=== PATIENT | female | born 2000 | race Caucasian/White ===

== ENCOUNTER 2020-01-08 06:00 | Outpatient (RCR) | payer MEDICAID, SELFPAY | END 2020-02-02 23:59 | disposition home or self-care (01) | LOC: GPT 06:00 | PROVIDERS: PCP Nurse Practitioner; Referring Provider Orthopaedic Surgery; Visit Provider Orthopaedic Surgery | DX: S73.191A Other sprain of right hip, initial encounter (principal); Z98.890 Other specified postprocedural states; X58.XXXA Exposure to other specified factors, initial encounter | CPT/HCPCS: 97110; 97112; 97116; 97140; 97162; 97530 ==

== ENCOUNTER 2020-02-03 06:00 | Outpatient (RCR) | payer MEDICAID, SELFPAY | END 2020-03-03 23:59 | disposition home or self-care (01) | LOC: GPT 06:00 | PROVIDERS: PCP Nurse Practitioner; Referring Provider Orthopaedic Surgery; Visit Provider Orthopaedic Surgery | DX: S83.511D Sprain of anterior cruciate ligament of right knee, subsequent encounter (principal); X58.XXXD Exposure to other specified factors, subsequent encounter; Z96.649 Presence of unspecified artificial hip joint | CPT/HCPCS: 97110; 97112; 97140; 97164; 97530 ==

== ENCOUNTER → 2020-05-13 08:00 | Outpatient (BNVA) | payer MEDICAID, SELFPAY | PROVIDERS: PCP Nurse Practitioner; Visit Provider Psychiatry & Neurology Psychiatry | DX: F43.12 Post-traumatic stress disorder, chronic (principal); F33.2 Major depressive disorder, recurrent severe without psychotic features; F17.200 Nicotine dependence, unspecified, uncomplicated | CPT/HCPCS: 99204 ==

== ENCOUNTER → 2020-06-10 07:37 | Outpatient (BNVA) | payer MEDICAID, SELFPAY | PROVIDERS: PCP Nurse Practitioner; Visit Provider Psychiatry & Neurology Psychiatry | DX: F60.3 Borderline personality disorder (principal); F17.200 Nicotine dependence, unspecified, uncomplicated; F33.2 Major depressive disorder, recurrent severe without psychotic features; F43.12 Post-traumatic stress disorder, chronic | CPT/HCPCS: 99214 ==

== ENCOUNTER 2020-11-25 15:44 | Outpatient (CLI) | payer MEDICAID, SELFPAY ==
--- NOTE | 2020-11-25 16:04 | MR_ITS ---
WS: [id number] MRI LUMBAR SPINE NONCONTRAST HISTORY: RADICULOPATHY, LUMBOSACRAL REGION COMPARISON: 10/31/2018 TECHNIQUE: Sagittal and axial multisequence imaging is submitted. Minimal RIGHT curvature lumbar spine. Posterior alignment is normal. No marrow edema or fractures. Mild disc space narrowing and desiccation at L5-S1. Similar to the prior study. The remaining discs a re normal. Conus terminates normally at L1-2 disc level. L1-L2: Normal. L2-L3: Normal. L3-L4: Minimal annular disc bulge. Very mild facet joint arthritis. No stenosis. L4-L5: Mild annular disc bulging with mild facet joint arthritis. Fluid in the facet joints. There is a fissure in the RIGHT foraminal disc. No stenosis or contact on the nerve root. L5-S1: Moderate annular disc bulging and mild osteophytic ridging. Moderate size central disc protrus ion with annular tear. Disc extends caudad to the disc level and is slightly extruded although still contacts the parent disc. This extruded disc contacts the S1 nerve roots, RIGHT greater than LEFT. Mi ld to moderate facet joint arthritis. Very mild encroachment of the disc into the foramen causing mil d foraminal narrowing. Visualized retroperitoneal structures are negative. MR/MR lumbar spine wo con* [id number] IMPRESSION: 1. Again noted is a moderate size central disc protrusion with mild caudad dis placement at L5-S1. Disc is contacting the traversing S1 nerve roots bilaterall y, RIGHT greater than LEFT. 2. Mild bilateral foraminal narrowing at L5-S1. 3. Mild to moderate facet joint arthritis at L4-5 and L5-S1.
== END 2020-11-25 15:45 | disposition home or self-care (01) ==
PROVIDERS: PCP Nurse Practitioner; Visit Provider Nurse Practitioner
DX: M54.17 Radiculopathy, lumbosacral region (principal); M47.816 Spondylosis without myelopathy or radiculopathy, lumbar region; M47.817 Spondylosis without myelopathy or radiculopathy, lumbosacral region; M51.27 Other intervertebral disc displacement, lumbosacral region
CPT/HCPCS: 72148

== ENCOUNTER → 2021-01-12 09:21 | Outpatient (BNVA) | payer MEDICAID, SELFPAY | PROVIDERS: PCP Nurse Practitioner; Visit Provider Anesthesiology Pain Medicine | DX: G89.29 Other chronic pain (principal); M47.816 Spondylosis without myelopathy or radiculopathy, lumbar region; M51.36 Other intervertebral disc degeneration, lumbar region; M51.16 Intervertebral disc disorders with radiculopathy, lumbar region; M79.604 Pain in right leg; M79.605 Pain in left leg; F17.210 Nicotine dependence, cigarettes, uncomplicated | CPT/HCPCS: 99204 ==

== ENCOUNTER → 2021-06-24 10:34 | Outpatient (BNVA) | payer MEDICAID, SELFPAY | PROVIDERS: PCP Nurse Practitioner; Visit Provider Anesthesiology Pain Medicine | DX: G89.29 Other chronic pain (principal); M47.816 Spondylosis without myelopathy or radiculopathy, lumbar region; M51.36 Other intervertebral disc degeneration, lumbar region; M51.16 Intervertebral disc disorders with radiculopathy, lumbar region; M79.604 Pain in right leg; M79.605 Pain in left leg; F17.210 Nicotine dependence, cigarettes, uncomplicated | CPT/HCPCS: 99214 ==

== ENCOUNTER → 2021-07-01 14:30 | Outpatient (BNVA) | payer MEDICAID, SELFPAY | PROVIDERS: PCP Nurse Practitioner; Visit Provider Anesthesiology Pain Medicine | DX: F17.210 Nicotine dependence, cigarettes, uncomplicated (principal); M47.816 Spondylosis without myelopathy or radiculopathy, lumbar region | CPT/HCPCS: 64493; 64494; 64495; J3490 ==

== ENCOUNTER → 2021-08-18 13:15 | Outpatient (BNVA) | payer MEDICAID, SELFPAY | PROVIDERS: PCP Nurse Practitioner; Visit Provider Anesthesiology Pain Medicine | DX: F17.210 Nicotine dependence, cigarettes, uncomplicated (principal); M47.816 Spondylosis without myelopathy or radiculopathy, lumbar region | CPT/HCPCS: 64493; 64494; 64495; J3490 ==

== ENCOUNTER → 2021-09-10 10:57 | Outpatient (BNVA) | payer MEDICAID, SELFPAY | PROVIDERS: PCP Nurse Practitioner; Visit Provider Anesthesiology Pain Medicine | DX: M51.16 Intervertebral disc disorders with radiculopathy, lumbar region (principal); M51.36 Other intervertebral disc degeneration, lumbar region; F17.210 Nicotine dependence, cigarettes, uncomplicated | CPT/HCPCS: 99213 ==

== ENCOUNTER → 2021-10-20 08:56 | Outpatient (BNVA) | payer MEDICAID, SELFPAY | PROVIDERS: PCP Nurse Practitioner; Visit Provider Orthopaedic Surgery | DX: M51.16 Intervertebral disc disorders with radiculopathy, lumbar region (principal); R20.2 Paresthesia of skin; R32 Unspecified urinary incontinence; M25.552 Pain in left hip; M25.551 Pain in right hip | CPT/HCPCS: 72110; 73522; 99204 ==

== ENCOUNTER 2021-11-02 07:23 | Outpatient (CLI) | payer MEDICAID, SELFPAY ==
--- NOTE | 2021-11-02 08:00 | MR_ITS ---
WS: [id number] MRI LUMBAR SPINE NONCONTRAST HISTORY: pain and numbness/weakness COMPARISON: 11/25/2020 TECHNIQUE: Sagittal and axial multisequence imaging is submitted. Minimal retrolisthesis of L5 is similar to the prior study. The remaining disc spaces and vertebral b stuart heights are normal. No fracture or marrow edema. Disc spaces and vertebral body heights are well-preserved. Conus terminates normally at L1-2 disc level. L1-L2: Normal. L2-L3: Normal. L3-L4: Very minimal disc bulging. No stenosis. L4-L5: Mild annular disc bulge with a very shallow LEFT paracentral disc protrusion. LEFT paracentral disc protrusion is new but does not contact the nerve root. No high-grade stenosis. Small bilateral annular fissures in tiny disc protrusions in the foramina. Similar to the prior studies. L5-S1: Mild annular disc bulging and osteophytic ridging. Central disc protrusion extends slightly ca udad from the disc space similar to the prior study. Disc protrusion slightly smaller with less conta ct on the the S1 nerve roots. Very slight contact on the RIGHT L5 exiting nerve root. Mild bilateral foraminal stenosis, RIGHT greater than LEFT. MR/MR lumbar spine wo con* [id number] IMPRESSION: 1. Moderate size central disc protrusion with carotid displacement at L5-S1. D isc has slightly decreased in size with less contact on the S1 nerve roots. 2. Additional disc bulging and osteophytosis at L5-S1 disc level with mild con tact on the RIGHT L5 exiting nerve root and mild RIGHT foraminal stenosis. 3. New shallow LEFT paracentral disc protrusion at L4-5. No nerve root contact . 4. Small bilateral neuroforaminal annular fissures and disc protrusions at L4- 5.
== END 2021-11-02 07:24 | disposition home or self-care (01) ==
PROVIDERS: PCP Nurse Practitioner; Visit Provider Orthopaedic Surgery
DX: M51.16 Intervertebral disc disorders with radiculopathy, lumbar region (principal); M25.78 Osteophyte, vertebrae
CPT/HCPCS: 72148

== ENCOUNTER → 2021-12-03 07:39 | Outpatient (BNVA) | payer MEDICAID, SELFPAY | PROVIDERS: PCP Nurse Practitioner; Visit Provider Orthopaedic Surgery | DX: M51.16 Intervertebral disc disorders with radiculopathy, lumbar region (principal) | CPT/HCPCS: 99214 ==

== ENCOUNTER 2021-12-11 09:39 | Day surgery (SDC) | payer MEDICAID, SELFPAY ==
[2021-12-10 09:15] VITALS: BMI 19.7
[2021-12-11] VITALS (13 sets, daily range): BP systolic 100–128; BP diastolic 59–81; PULSE 86–114; RESP 15–20; TEMP 36.2–37; O2SAT 93–100
--- NOTE | 2021-12-11 | XR_ITS ---
WS: [id number] Lumbar spine, C-arm fluoroscopy view, 12/11/2021 Clinical Data: L5-S1 decompression Comparison: None. Findings: Dr. Cardoso performed a lumbar decompression. XR/XR lumbar spine 1V [id number] Impression: Lumbar decompression.
--- NOTE | 2021-12-11 | SCC_ITS ---
Procedure done: 1. L5/S1 laminectomy with partial facetectomies 13.0 seconds of fluoroscopic guidance, for a cumulative dose of 2.23 mGy, was provided to Dr. Cardoso by the radiology department. C-arm images of the lumbar spine were saved for the patient's permanent record. [facility]
[2021-12-11 10:13] LABS: OR HCG Qualitative Urine Negative (Negative)
[2021-12-11] MEDS: sodium chloride 0.9% 1,000 ML 30 ML IV (10:14)
[2021-12-11] MEDS: HYDROmorphone 1 mg/mL INJ 1 mL 0.5 MG IVP (10:57)
--- NOTE | 2021-12-11 10:59 | W.PM.OPSUD ---
Surgery/Procedure H&P Update DATE OF PROCEDURE: December 11, 2021 DATE H&P PERFORMED: 12/03/21 H&P UPDATE INFORMATION: I have reviewed H&P completed within last 30 days, I have examined patient prior to procedure and No changes to prior documentation PREOP DIAGNOSIS: Degenerative disc disease lumbar spine, lumbar radiculopathy PLANNED PROCEDURE: Operation Date: 12/11/21 11:30 Proposed Procedures p Lumbar Spine Decompression L5/S1 08797 /M51.16(Left) - Keegan Cardoso DO
[2021-12-11] MEDS: ceFAZolin 2,000 MG in sodium chloride 0.9% (plus) 50 ML 100 MG IV (11:10)
--- NOTE | 2021-12-11 11:27 | ANES.PREANE2 ---
Pre-Anesthetic Assessment Height/Weight: Height 1.63 m Weight 52.163 kg Resp Pulse Ox O2 Del Method 18 98 12/11/21 10:57 12/11/21 10:57 12/11/21 10:00 Preop Diagnosis: Degenerative disc disease lumbar spine, lumbar radiculopathy Operation Date: 12/11/21 11:30 Proposed Procedures p Lumbar Spine Decompression L5/S1 59029 /M51.16(Left) - Keegan Langley Caron, DO Familial anesthetic complications: none Was Beta Yusra taken within 24 hours: N/A Was Clonidine taken within 24 hours: N/A Last intake: Intake Last Liquid Date 12/10/21 Last Liquid Time 22:00 Last Solid Date 12/10/21 Last Solid Time 19:30 Social Tobacco and No alcohol Exam alert, oriented x 3 and regular rate & rhythm Airway Submandibular: within normal limits Cervical ROM: within normal limits Mallampati: Class II Dentition: chipped Pulmonary Asthma GI Gastroesophageal Reflux Disease Musc/skel Lower Back Pain and Osteoarthritis/DJD Neuropsych Anxiety and Depression Anesthetic Plan ASA status: 3 Anesthesia: General Medications/Allergies Home Medications Medication Instructions Recorded Confirmed Last Taken Type albuterol sulfate 90 mcg/actuation 2 puff inhalation Q6H PRN 05/13/20 12/11/21 Unknown History aerosol inhaler (Ventolin HFA) shortness of breath or wheezing naproxen 500 mg tablet 500 mg PO BID 06/09/20 12/11/21 12/04/21 History quetiapine 100 mg tablet (Seroquel) 100 mg PO DAILY 11/24/20 12/11/21 12/10/21 History baclofen 10 mg tablet 10 mg PO BID 06/24/21 12/11/21 12/10/21 History hydroxyzine HCl 25 mg tablet 50 mg PO BID PRN Anxiety 06/24/21 12/11/21 12/11/21 History ondansetron 4 mg disintegrating 4 mg PO Q8H 06/24/21 12/11/21 12/10/21 History tablet Allergies Allergy/AdvReac Type Severity Reaction Status Date / Time codeine Allergy Severe Swelling Verified 12/03/21 08:26 menthol Allergy Unknown UNKOWN Verified 12/03/21 08:26 bupropion [From Wellbutrin] AdvReac Intermediate Mood swings Verified 12/03/21 08:26 sertraline [From Zoloft] AdvReac Intermediate Weight Verified 12/03/21 08:26 loss, Torres, Irritable, No appetite Unkown antibiotic AdvReac Intermediate N & V, Uncoded 12/03/21 08:26 Loss of focus, Dizziness. Current Medications Generic Name Dose Route Start Last Admin Trade Name Freq PRN Reason Stop Dose Admin Sodium Chloride 1,000 mls @ 30 mls/hr 12/11/21 10:00 12/11/21 10:14 Sodium Chloride 0.9% IV 12/12/21 09:59 30 mls/hr .Q24H LORENA Administration PFSH Anesthesia Social History Smoking and tobacco status: current every day smoker (<1pack ) cigarettes Packs smoked per day: 1 Years cigarettes smoked: 6 Current gender identity: Female Female Reproductive History Date of last menstrual period: 11/21/21 Data Anesthesia Cardiac Studies: No Data to Display
--- NOTE | 2021-12-11 12:25 | P.OP_ITS ---
Operative Report Date of procedure: December 11, 2021 Pre-op diagnosis: Preop Diagnosis Degenerative disc disease lumbar spine, lumbar radiculopathy Post-op diagnosis: same Procedure done: 1. L5/S1 laminectomy with partial facetectomies Surgeon: Keegan Cardoso Estimated blood loss (mL): 5 Procedure: 1. L5/S1 laminectomy with partial facetectomies Patient is brought to the operative suite. After undergoing anesthesia they are placed in the prone position. All areas of impingement are well padded. Patient is then prepped and draped in the normal sterile fashion. A skin incision is made over the L5-S1 level. This is confirmed under c-arm guidance. A series of dilators are passed and the tubular retractor is docked on the L 5 lamina. A bovie is used to clear the soft tissue off the lamina and the L 5/S1 facet joint. A high speed lois is then used to perform the laminectomy and take down the medial aspect of the L 5/S1 facet joint. A kerrison rongeure was then used to take down the remaining lamina and smooth the edged of the laminectomy up to the point where the ligamentum flavum attaches. Attention was then brought to the medial aspect of the facet joint. The remaining medial aspect of the superior and inferior aspect of the facet joint were taken down with the kerrison from the pedicle of L 5 to S1. The facet joint had significant hypertrophy. Attention was then brought to the Ligamentum Flavum. The ligament was taken down from the lamina of L 5 to S1 and out medially to the remaining facet joint. The ligament was thickened. The dura was then exposed. The dura was in good repair. The L 5 nerve was then traced with a curette out the L 5/S1 foramen and found to be adequately decompressed. The S1 nerve was traced with a curette around the S1 pedicle. The lateral recess was opened with a kerrison helping to further decompress the S1 nerve. The tubular retractor was then tilted to the contralateral side. The bovie was used to take down the soft tissue on the spinous process. The high speed lois was used to take down the spinous process and then the contralateral lamina of L 5. The kerrison rongeur was used to take down the remaining lamina to the point where the ligamentum flavum attached and the ligamentum flavum was taken down from L 5 to S1. The kerrison rongeur was then used to reach across and take down the medial aspect of the contralateral L 5/S1 facet joint.The currete was used to trace the contralateral L 5 nerve out the L 5/S1 foramen to make sure it was decompressed adequatesly and the S1 was traced around the S1 pedicle. The lateral recess was opened further with the kerrison to ensure the S1 is adeq uately decompressed. Wound is then irrigated copiously with saline and surgiflo is used to stop any bleeding. The tubular retractor is removed and the wound is closed with vicryl and monocryl suture. Glue is then used to protect the wound. A sterile dressing is then placed. Patient was then placed in the supine position and transferred to the PACU in stable condition.
--- NOTE | 2021-12-11 12:43 | SUR.PHASEI ---
1236 PT TO PACU 5 PT AWAKE ALERT WITH GOOD RESP NOTED IV PATENT TO RT AC #20 WITH NS 200 ML AT KVO RATE ID BRACELET TO RT WRIST PT ID'D WITH 2 IDENTIFIERS, MONITOR ST WITH NO ECTOPY, DRESSING TO LOWER BACK D/I NO HEMATOMA NOTED BILAT SCDS ON .
[2021-12-11] MEDS: meperidine 50 mg/mL INJ 12.5 MG IVP (12:53)
--- NOTE | 2021-12-11 12:57 | SUR.PHASEI ---
1255 PT SHIVERING UNCONTROLLED WARM BLANKETS X 4 VSS SEE MED GIVEN PT C/O OF BACK PAIN 3 PER FACES.
--- NOTE | 2021-12-11 13:00 | SUR.PHASEI ---
PT RESTING MORE QUIETLY NOW VSS.
[2021-12-11] MEDS: fentaNYL 50 mcg/mL INJ 2mL IVP (13:05)
--- NOTE | 2021-12-11 13:10 | SUR.PHASEI ---
1305 SHIVERING GONE, BUT PT CONTINUES TO RATE LOW BACK PAIN AT 9 SEE MED GIVEN, WARM BLANKETS TO PATIENT
--- NOTE | 2021-12-11 13:14 | SUR.PHASEI ---
PT REMAINS AWAKE ALERT VSS DRESSING UNCHANGED PT STATES PAIN IS (BETTER, BUT NOT GONE) PT OK WITH PO PAIN MED IN OPS, PT REQUESTS TO SEE FAMILY AND DRINK A DR PEPPER. PT HAS STRONG BILATERAL STRENGTH TO LOWER EXT WITH DORSAL EXTENSION AND FLEXATION.
--- NOTE | 2021-12-11 14:56 | ANE.PACU2 ---
Inpatient post-anesthesia follow up: Airway intact: Yes Vital signs: Temperature 98.0 F Pulse Rate 98 Respiratory Rate 16 Blood Pressure 117/71 Pulse Oximetry 99 Oxygen Delivery Me thod Room Air Oxygen Flow Rate 8 Fraction of Inspir ed Oxygen Hydration adequate: Yes Nausea and vomiting: No Pain level: 3 Mental status: Baseline
== END 2021-12-11 14:00 | disposition home or self-care (01) ==
PROVIDERS: Physician Assistant; PCP Nurse Practitioner; Visit Provider Orthopaedic Surgery
PROC: (CPT 63005; principal; 2021-12-11 11:20)
DX: M51.16 Intervertebral disc disorders with radiculopathy, lumbar region (principal); J45.909 Unspecified asthma, uncomplicated; K21.9 Gastro-esophageal reflux disease without esophagitis; F41.9 Anxiety disorder, unspecified; F32.A Depression, unspecified; F17.210 Nicotine dependence, cigarettes, uncomplicated
CPT/HCPCS: 63047; 72020; 76000; 84703; J1100; J1170; J1200; J2175; J2250; J2405; J2704; J2710; J3010; J3490; J7030

== ENCOUNTER → 2021-12-29 08:59 | Outpatient (BNVA) | payer MEDICAID, SELFPAY | PROVIDERS: PCP Nurse Practitioner; Visit Provider Orthopaedic Surgery | DX: Z47.89 Encounter for other orthopedic aftercare (principal); R30.9 Painful micturition, unspecified | CPT/HCPCS: 81001; 99024 ==

== ENCOUNTER → 2022-09-30 10:22 | Outpatient (BNVA) | payer MEDICAID, SELFPAY | PROVIDERS: PCP Nurse Practitioner; Visit Provider Physician Assistant | DX: M51.16 Intervertebral disc disorders with radiculopathy, lumbar region (principal); M54.9 Dorsalgia, unspecified | CPT/HCPCS: 72100; 99213 ==

== ENCOUNTER → 2023-04-28 14:09 | Outpatient (BNVA) | payer MEDICAID, SELFPAY | PROVIDERS: PCP Nurse Practitioner; Visit Provider Orthopaedic Surgery | DX: M51.16 Intervertebral disc disorders with radiculopathy, lumbar region | CPT/HCPCS: 99214 ==

== ENCOUNTER 2023-05-25 10:06 | Outpatient (CLI) | payer MEDICAID, SELFPAY ==
--- NOTE | 2023-05-25 10:15 | MR_ITS ---
WS: [id number] MRI LUMBAR SPINE NONCONTRAST HISTORY: back pain COMPARISON: 11/02/2021 TECHNIQUE: Sagittal and axial multisequence imaging is submitted. Normal lumbar alignment with no compression fractures or marrow edema. Mild disc desiccation at L5-S1. No fractures or marrow edema. Conus terminates normally at L1-2 disc level. L1-L2: Normal. L2-L3: Normal. L3-L4: Mild annular disc bulging with ligamentum flavum and facet arthritis. No stenosis. L4-L5: Mild annular disc bulge. Very shallow LEFT paracentral disc protrusion described on the prior study is no longer present. No significant stenosis or disc protrusion. L5-S1: Mild annular disc bulging with a central disc protrusion. Central disc protrusion continues to decrease in size. There is slight contact on the S1 nerve roots bilaterally. Mild bilateral subartic ular recess and foraminal stenosis. There is also mild osteophytic ridging around the L5 vertebral deidra dy. Paravertebral soft tissues are normal. IMPRESSION: 1. Continued decrease in size of the central disc protrusion at L5-S1. There is continued mild conta ct on the S1 nerve roots bilaterally. Mild subarticular recess and foraminal stenosis due to disc, fa cet and osteophyte disease. No progression. 2. Shallow LEFT paracentral disc protrusion at L4-5 is no longer identified. No stenosis.
== END 2023-05-25 10:07 | disposition home or self-care (01) ==
LOC: RAD 10:07
PROVIDERS: PCP Nurse Practitioner; Visit Provider Orthopaedic Surgery
DX: M51.27 Other intervertebral disc displacement, lumbosacral region (principal); M48.07 Spinal stenosis, lumbosacral region
CPT/HCPCS: 72148

== ENCOUNTER → 2023-06-21 14:35 | Outpatient (BNVA) | payer MEDICAID, SELFPAY | PROVIDERS: PCP Nurse Practitioner; Referring Provider Nurse Practitioner; Visit Provider Orthopaedic Surgery | DX: M54.9 Dorsalgia, unspecified (principal); Z09 Encounter for follow-up examination after completed treatment for conditions other than malignant neoplasm; M51.36 Other intervertebral disc degeneration, lumbar region | CPT/HCPCS: 99214 ==

== ENCOUNTER 2023-07-05 06:00 | Outpatient (RCR) | payer MEDICAID, SELFPAY | END 2023-08-02 23:59 | disposition home or self-care (01) | LOC: GPT 06:00 | PROVIDERS: Visit Provider Orthopaedic Surgery | DX: M54.9 Dorsalgia, unspecified (principal); G89.29 Other chronic pain | CPT/HCPCS: 97110; 97161 ==

== ENCOUNTER → 2023-07-12 15:50 | Outpatient (BNVA) | payer MEDICAID, SELFPAY | PROVIDERS: PCP Nurse Practitioner; Visit Provider Orthopaedic Surgery | DX: M51.16 Intervertebral disc disorders with radiculopathy, lumbar region (principal); M54.9 Dorsalgia, unspecified | CPT/HCPCS: 36415; 72100; 80053; 81001; 85025; 99214 ==

== ENCOUNTER 2023-08-10 09:11 | Inpatient (IN) | payer MEDICAID, SELFPAY ==
[2023-08-10] VITALS (22 sets, daily range): BP systolic 96–128; BP diastolic 44–86; PULSE 78–112; RESP 9–19; TEMP 36.4–37.2; O2SAT 92–100; BMI 18.8
--- NOTE | 2023-08-10 | XR_ITS ---
WS: [id number] Lumbar spine, C-arm fluoroscopy views, 08/10/2023 Clinical Data: BRODIE PICS Comparison: Lumbar spine, 07/12/2023 Findings: Dr. Cardoso performed a posterior lumbosacral fusion. XR/XR lumbar spine 2-3V* [id number] Impression: Posterior lumbosacral fusion.
[2023-08-10 06:25] LABS: OR HCG Qualitative Urine Negative (Negative)
--- NOTE | 2023-08-10 06:29 | W.PM.OPSUD ---
Surgery/Procedure H&P Update DATE OF PROCEDURE: August 10, 2023 DATE H&P PERFORMED: 08/03/23 H&P UPDATE INFORMATION: I have reviewed H&P completed within last 30 days, I have examined patient prior to procedure and No changes to prior documentation PLANNED PROCEDURE: Operation Date: 08/10/23 07:00 Proposed Procedures p Spinal Fusion(Not Applicable) - Keegan Cardoso DO s Posterior Lumbar Interbody Fusion(Not Applicable) - Keegan Cardoso DO
[2023-08-10] MEDS: sodium chloride 0.9% 1,000 ML 30 ML IV (06:42)
--- NOTE | 2023-08-10 06:43 | ANES.PREANE2 ---
Pre-Anesthetic Assessment Height/Weight: Height 1.63 m Weight 49.895 kg Temp Pulse Resp BP Pulse Ox O2 Del Method 99 F 104 H 18 97/75 98 Room Air 08/10/23 06:01 08/10/23 06:01 08/10/23 06:01 08/10/23 06:01 08/10/23 06:01 08/10/23 06:08 Operation Date: 08/10/23 07:00 Proposed Procedures p Spinal Fusion(Not Applicable) - Keegan Cardoso DO s Posterior Lumbar Interbody Fusion(Not Applicable) - Keegan Cardoso DO Familial anesthetic complications: None Was Beta Yusra taken within 24 hours: N/A Was Clonidine taken within 24 hours: N/A Last intake: Intake Last Liquid Date 08/09/23 Last Liquid Time 21:00 Last Solid Date 08/09/23 Last Solid Time 21:00 Social Tobacco and No alcohol Exam alert, oriented x 3, clear to auscultation bilaterally and regular rate & rhythm Airway Mallampati: Class II Dentition: chipped Pulmonary Asthma GI Gastroesophageal Reflux Disease Anesthetic Plan ASA status: 2 Anesthesia: General Risk of > 500 ml blood loss (7ml/kg in children): No Medications/Allergies Home Medications Medication Instructions Recorded Confirmed Last Taken Type naproxen 500 mg tablet 500 mg PO BID 06/09/20 08/09/23 08/04/23 History quetiapine 100 mg tablet (Seroquel) 100 mg PO DAILY 11/24/20 08/09/23 08/09/23 History baclofen 10 mg tablet 10 mg PO BID 06/24/21 08/09/23 08/09/23 History hydroxyzine HCl 25 mg tablet 50 mg PO BID PRN Anxiety 06/24/21 08/10/23 08/10/23 History duloxetine 30 mg capsule,delayed 30 mg PO DAILY 08/03/23 08/09/23 08/09/23 History release (Cymbalta) lamotrigine 100 mg tablet 100 mg PO DAILY 08/03/23 08/09/23 08/09/23 History Allergies Allergy/AdvReac Type Severity Reaction Status Date / Time codeine Allergy Severe Swelling Verified 08/09/23 09:42 menthol Allergy Unknown UNKOWN Verified 08/09/23 09:42 bupropion [From Wellbutrin] AdvReac Intermediate Mood swings Verified 08/09/23 09:42 sertraline [From Zoloft] AdvReac Intermediate Weight Verified 08/09/23 09:42 loss, Torres, Irritable, No appetite Unkown antibiotic AdvReac Intermediate N & V, Uncoded 08/09/23 09:42 Loss of focus, Dizziness. Current Medications Generic Name Dose Route Start Last Admin Trade Name Freq PRN Reason Stop Dose Admin Sodium Chloride 1,000 mls @ 30 mls/hr 08/10/23 06:00 08/10/23 06:42 Sodium Chloride 0.9% IV 08/11/23 05:59 30 mls/hr .Q24H LORENA Administration PFSH Anesthesia Social History Smoking and tobacco/nicotine status: current every day tobacco/nicotine user (<1pack ) cigarettes Packs smoked per day: 1 Years cigarettes smoked: 6 Current gender identity: Female Data Anesthesia Cardiac Studies: No Data to Display
[2023-08-10] MEDS: ceFAZolin 2,000 MG in sodium chloride 0.9% (plus) 50 ML 100 MG IV ×3 (07:00→22:38)
[2023-08-10] MEDS: lidocaine-epi 1% 20 mL INJ INJECTION (08:15)
[2023-08-10] MEDS: vancomycin 1,000 MG SDV 1000 MG XX (08:15)
[2023-08-10] MEDS: heparin, porcine 1,000 unit/mL INJ 10 mL 10000 UNIT IRRIGATION (08:16)
--- NOTE | 2023-08-10 09:41 | PM.OP ---
Operative Report Date of procedure: August 10, 2023 Pre-op diagnosis: Lumbar stenosis with neurogenic claudication Post-op diagnosis: same Procedure done: 1. L5/S1 Interbody fusion with posterolateral fusion 2. Instrumentation L5/S1 3. Cage at L5/S1 4. L5-S1 laminectomy with facetectomies 5. Use of computer navigation/stereotactic for spine 6 . use of autograft from same incision 7. allograft 8. Bone marrow aspirate from right iliac crest 9. revison spine surgery Surgeon: Keegan Cardoso DO Estimated blood loss (mL): 50 Procedure: 1. L5/S1 Interbody fusion with posterolateral fusion 2. Instrumentation L5/S1 3. Cage at L5/S1 4. L5-S1 laminectomy with facetectomies 5. Use of computer navigation/stereotactic for spine 6 . use of autograft from same incision 7. allograft 8. Bone marrow aspirate from right iliac crest 9. revison spine surgery Patient is brought to the operative suite. After undergoing anesthesia, the patient had neuro monitoring attached. Patient was then placed in the prone position on the Maikol table. All areas of impingement were well-padded. Patient was then prepped and draped in the normal sterile fashion. Skin incision was then made over the L5/S1 space. Subperiosteal dissection was made out to the transverse processes of L5 and sacral ala bilaterally. The [employer] bone marrow aspirate kit was used to aspirate bone marrow aspirate. This was done by using the sharp probe to open up the bone of the right iliac crest. Aspiration was performed and then the blunt probe was then used to dissect down to through the bone tunnel. An aspirating well drawn back a millimeter approximately 10 cc of bone marrow aspirate was used. Admixed with the allograft and autograft bone that will be used. Next 2 pins were placed for the computer navigation. These 2 pins were placed in the right iliac crest. The fiducial was attached. Seems brought in and spun around the patient. The information from serum was then loaded the computer later used for the peer navigation for placement of the pedicle screws. The technique for placing the pedicle screws was to use a drill followed by the gearshift probe linked to computer navigation. Followed by the ball probe to feel the superior inferior medial lateral haq of the pedicles. Then placement of the screws linked to computer navigation. Was done at each pedicle. Screws were placed at L5 bilaterally and S1. Next attention was brought to performing the laminectomy ofL5. This was done using the high-speed bur Kerrisons and curettes. Once the lamina was removed and then attention was brought to performing a partial facetectomy on the contralateral side. Previous L5-S1 laminectomy with partial facetectomies were done attention was paid to scar tissue. Off the nerves and dura with a curved curette. This was done again using the high-speed bur curettes and Kerrisons. The ligamentum flavum was taken down bilaterally from L5 to S1. Attention was then brought to the facet on the ipsilateral side. The facet was taken down. The S1 nerve was decompressed as it passed around the S1 pedicle. The laminectomy was done for purposes of decompressing the nerve as well as placement of the cage. The L5 nerve was identified as it traversed through the L5/S1 foramen. The thecal sac was identified and retracted. The L5/S1 disc base was identified. Using a knife the disc base was opened. And then sequential jason were placed. The first shaver was a 6 and the last shaver was a 10. Using a pituitary and down going curette the endplates were scraped and disc material was removed from the space. Once adequate decompression of the disc base was felt to be had. Osteoamp sponge was packed into the anterior aspect of the disc base. Then a size 11 cage from [employer] was placed after packing osteoamp into the cage. While placing the cage the thecal sac and S1 nerve was protected. C arm was used to ensure that the cages placed in the appropriate position. Attention was then brought to attaching the rods to the screws placed in the L5 bilaterally and S1 bilaterally. Caps were torqued into position. Locking the construct in place. Wound was copiously irrigated and then attention was brought to decorticating the facets and transverse processes laterally. Bone that was taken down from the lamina was used along with osteoamp fibers and sponges were packed into the lateral gutters along the facet joints. This was done bilaterally. Wound was then closed in a layered fashion starting with the thoracolumbar fascia. 0-vicryl was used the sub cutaneous tissue was closed with 2-0 vicryl and skin with 4-0 monocryl. Glue was then used to seal the skin and a steril dressing was applied. Patient was then placed in the supine position. The endotracheal tube was removed and patient was transferred to the PACU in stable condition.
[2023-08-10] MEDS: fentaNYL 50 mcg/mL INJ 2mL IVP (10:12)
--- NOTE | 2023-08-10 10:25 | ANE.PACU2 ---
Inpatient post-anesthesia follow up: Airway intact: Yes Vital signs: Temperature 97.9 F Pulse Rate 112 Respiratory Rate 16 Blood Pressure 125/78 Pulse Oximetry 98 Oxygen Delivery Me thod Room Air Oxygen Flow Rate 8 Fraction of Inspir ed Oxygen Hydration adequate: Yes Nausea and vomiting: No Pain level: 1 Mental status: Baseline
[2023-08-10] MEDS: lactated ringers 1,000 ML 90 ML IV ×2 (10:56→20:28)
[2023-08-10] MEDS: HYDROcodone-acetaminophen 5-325 mg Tablet PO ×4 (11:27→22:39)
[2023-08-10] MEDS: ketorolac 30 mg/mL INJ IVP (12:49)
[2023-08-10] MEDS: nicotine 21 mg Patch 1 PATCH TRANSDERMA (14:48)
[2023-08-10] MEDS: docusate sodium 100 mg Capsule PO (17:30)
[2023-08-10] MEDS: baclofen 10 mg Tablet PO (17:30)
--- NOTE | 2023-08-10 19:07 | PC.NURSE ---
SHIFT SUMMARY Patient has done well today. Good PO intake and output. Surgical dressing in place. 100ml out of hemovac. Patient did well with PT. Pain well controlled with oral pain medication. Currently resting in bed.
--- NOTE | 2023-08-10 19:38 | PC.NURSE ---
The pt called nurse to room to ask about her home medications and when she would receive them while in the hospital. We reviewed the medications together and she reported she takes her Cymbalta, Lamictal, and Seroquel all at HS. Orders were edited to reflect this to accommodate the pt home regimen.
[2023-08-10] MEDS: duloxetine 30 mg Capsule PO (20:28)
[2023-08-10] MEDS: lamoTRIgine 100 mg Tablet PO (20:28)
[2023-08-10] MEDS: quetiapine 100 mg Tablet PO (20:28)
[2023-08-11] MEDS: HYDROcodone-acetaminophen 5-325 mg Tablet PO ×3 (02:32→10:46)
[2023-08-11 03:58] VITALS: BP 106/67; PULSE 82; RESP 17; TEMP 37.1; O2SAT 97
[2023-08-11] MEDS: lactated ringers 1,000 ML 90 ML IV (06:36)
[2023-08-11] MEDS: ceFAZolin 2,000 MG in sodium chloride 0.9% (plus) 50 ML 100 MG IV (06:37)
[2023-08-11 07:05] VITALS: BP 111/69; PULSE 92; RESP 15; TEMP 36.5; O2SAT 97
--- NOTE | 2023-08-11 08:32 | PC.SOCIAL ---
Case Managment Received order for walker. Spoke to patient about DME choices. Choice sheet completed and placed in chart. [employer] completed. Pre-Cert # [id number]. Faxed order, pre-cert and supporting documentation to HOME @ this time.
[2023-08-11] MEDS: docusate sodium 100 mg Capsule PO (08:46)
[2023-08-11] MEDS: nicotine 21 mg Patch 1 PATCH TRANSDERMA (08:46)
[2023-08-11] MEDS: baclofen 10 mg Tablet PO (08:46)
--- OUTSIDE RECORDS SUMMARY | 2023-08-11 10:28 | XMS_ITS | Patient Health Record ---
Author Name Unknown Organization [facility] [facility] Address [address] [address] Care Team Providers Care Tooling Mechanic Name Role Phone CrestonWale orantesi Unavailable [phone] ALLERGIES Allergen (clinical drug ingredient) Drug/Non Drug Allergy documented on EMR Reaction Allergy Type Onset Date Status Wellbutrin ramos Drug Allergy Active sertraline Zoloft wt loss Drug Allergy Active codeine Codeine swelling Drug Allergy Active menthol Menthol skin redness, topical Drug Allergy Active REASON FOR REFERRAL No Information MEDICATIONS Medication SIG (Take, Route, Fr equency, Duration) Notes Start Date End Date Status Baclofen 10/06/2022 Active hydrOXYzine HCl Acti ve Ventolin HFA Active Zofran Active QUEtiapine Fumarate Active Gabapentin Active SOCIAL HISTORY Sex Assigned At : Social History Observation Description Sex Assigned At Female PROBLEMS Problem Type ICD Code Onset Dates Problem Status W/U Status Risk SNOMED Code Notes Problem Other chronic pain (G89.29) Active confirmed 59125496 VITAL SIGNS Heart Rate 88 /min 10/06/2022 Temperature 97.7 degrees Fahrenheit 10/06/2022 Oximetry 99 % 10/06/2022 Blood pressure diastolic 84 mm Hg 10/06/2022 Weight-kg 53.89 kg 10/06/2022 Blood pressure systolic 126 mm Hg 10/06/2022 Weight 118.8 lbs 10/06/2022 Encounters Encounter Location Date Provider Diagnosis [facility] [address] [address] 10/06/2022 Layne Sneed Other chronic pain G89.29 and Low back pain, unspecified M54.50 ASSESSMENTS Encounter Date Diagnosis Assessment Notes Treatment Notes Treatment Clinical Notes 10/06/2022 Other chronic pain (ICD-10 - G89.29) 10/06/2022 Low back pain, unspecified (ICD-10 - M54.50) 10/06/2022 Other I cannot complete her disability papers. she is a new pt and I have none of her records. PLAN OF TREATMENT No Information Insurance Providers Payer Name Payer Address Payer Phone Subscriber Number Group Number Insured Name Patient Relationship to Insured Coverage Start Date Coverage End Date Medicaid [address] [place] [address] [id number] Priyanka Mendez Self - patient is the insured MEDICAL (GENERAL) HISTORY Medical History History ICD Code chronic back pain depression anxiety insomnia Surgical History Surgery Date(Month/Year) lumbar laminectomy right hip labral tear repair tonsils and adenoids
--- OUTSIDE RECORDS SUMMARY | 2023-08-11 10:28 | XMS_ITS | Continuity of Care Document ---
Author Name Unknown Organization [facility] Address [id number] [address] Phone Care Team Providers Care Charge Rn Name Role Phone Remberto Nolasco DDS Unavailable Unavailabl e Allergies, Adverse Reactions, Alerts Substance Reaction Status Criticality menthol EdemaSkin rash Active No Informatio n Medications Medication Instructions Dosage Effective Dates (start - stop) Status Comments chlorhexidine gluconate 0.12 % mouthwash place 15 milliliter by mouth (after meals), swish one minute then spit out as needed - Active Start on 3rd day after surgery, use salt/water first 3 days. clonazepam 1 mg tablet Take 1 (one) tablet 1 (one) hour prior to procedure. - Active hydrocodone 5 mg-acetaminophen 325 mg tablet take 1 tablet by oral route every 6 hours as needed for pain as needed 1.00 tablet - Active ibuprofen 800 mg tablet take 1 tablet by oral route 3 times every day with food as needed 800 MG - Active Anti-inflamma tory caused by Oral Surgery, Do not used more than 3000mg per day. hydroxyzine HCl 50 mg tablet take 1 tablet by oral route 4 times every day 50 MG - Active baclofen 10 mg tablet take 1 tablet by oral route 4 times every day 10 MG - Active quetiapine 100 mg tablet take 1 tablet by oral route 2 times every day 100 MG - Active clindamycin HCl 300 mg capsule take 1 capsule by oral route every 8 hours - No Longer Active Procedures Procedure Date Non-Intravenous Conscious Sedation Removal Of Impacted Tooth ??? Completely Bony Removal Of Impacted Tooth ??? Completely Bony Surgical Removal Of Erupted Tooth Requir ing Elevat EDR Approval Note Limited Oral Evaluation ??? Problem Focu sed EDR Approval Note Advance Directives Directive Yes / No Effective Date File Name No Information Encounters Encounter Description Practice Location Reason(s) For Visit Diagnoses Date Provider Providers Copied on Encounter [facility], [id number], [id number], tel:[phone] [facility] Encounter for dental exam and cleaning w/o abnormal findings Constance Sr. [address] [place] [address], [address], . tel:[phone] Referring Provider: Remberto Nolasco, [address] [place] [address], [facility]. tel:[phone] [facility], [id number], [id number], tel:[phone] [facility] Encounter for dental exam and cleaning w/o abnormal findings Constance Sr. [address] [place] [address], [address], [place]. tel:[phone] Referring Provider: Remberto Nolasco, [address] [place] [address], [facility]. tel:[phone] Family History Family Member Type Diagnosis Age At Onset No Information Payers Payer name Insurance type Covered constitution party ID Jessicasusan narcisomaykel(s) D Medicaid [id number] Social History Type Description Quantity Date Captured Comments Alcohol Use Details No Caffeine Use Details Unknown Tobacco Use Status Smoking Status No Information Sex Female Gender Identity Female Chief Complaint And Reason For Visit No Information Reason For Referral Reason For Referral No Information History Of Present Illness Encounter Date Complaint History Of Prese nt Illness No Information Functional Status Date Functional Assessmen t No Information Instructions Date Instruction Additional Infor mation No Information Assessments Type Assessment Date No Information Patient Care Teams Name Effective Dates (start - stop) Status Members No Information
--- NOTE | 2023-08-11 10:29 | P.DS_ITS ---
Discharge Providers Date of Admission: 08/10/23 09:11 Date of Discharge: August 11, 2023 Attending Provider at Admission: Keegan Cardoso DO Attending Provider at Discharge: Keegan Cardoso DO Primary Care Provider: JL Matt Reason for Visit Reason for Visit: M51.16 Physical Exam Narrative: Patient is doing well feel stronger in her legs. Urinary Catheter Management: Nur: Cath Placed During This Visit: yes, but has since been removed by the nurse Reason for Continuing Indwelling Catheter: Decision to DC Catheter Urinary Catheter Date of Insertion: 08/10/23 Urinary Catheter Time of Insertion: 07:15 Date Urinary Catheter Removed: 08/11/23 Time Urinary Catheter Discontinued: 06:38 Discharge Data Studies Completed and Pending Completed Studies During Hospitalization Category Date Time Status XR lumbar spine 2-3V* [id number] Routine Exams 08/10/23 00:00 Completed Pending at discharge Category Date Time Status C-arm Fluoroscopy [id number] Routine Exams 08/10/23 09:16 Taken Radiology Impressions Lumbar Spine X-Ray 08/10/23 00:00 Impression: Posterior lumbosacral fusion. Laboratory Results Urine HCG, Qual Negative (Negative) 08/10/23 06:20 Blood Type B Positive 08/10/23 06:25 Rho(D) Type Rh positive 08/10/23 06:25 Antibody Screen Negative 08/10/23 06:25 Vitals Last Vital Signs Temp 97.7 F 08/11/23 07:05 Pulse 92 08/11/23 07:05 Resp 15 08/11/23 07:05 BP 111/69 08/11/23 07:05 Pulse Ox 97 08/11/23 07:05 O2 Del Method Room Air 08/11/23 07:05 O2 Flow Rate 8 08/10/23 10:06 Discharge Plan Discharge Patient Disposition: Home Condition: Stable Prescriptions: New hydrocodone-acetaminophen 5-325 mg tablet 1 - 2 tab PO .Q4-6H Qty: 40 0RF Continued naproxen 500 mg tablet 500 mg PO BID quetiapine [Seroquel] 100 mg tablet 100 mg PO DAILY hydroxyzine HCl 25 mg tablet 50 mg PO BID PRN (Reason: Anxiety) baclofen 10 mg tablet 10 mg PO BID lamotrigine 100 mg tablet 100 mg PO DAILY duloxetine [Cymbalta] 30 mg capsule,delayed release(DR/EC) 30 mg PO DAILY Discharge Orders: Discharge Order (Routine); Ordered 08/11/23 Ordered By: Keegan Cardoso Other Ambulatory Orders: DME: Walker (Order) Location: None Selected Ordered By: Keegan Cardoso Discharge Diet: Advance as tolerated Discharge Activity: Limit activity as instructed Patient Instructions: Lumbar Spinal Fusion (DC), Opioid Safety Activity Restrictions/Additional Instructions: Thank you for [facility] for your care! The following is a list of instructions, from your provider, to follow upon your discharge to ensure you have the optimal recovery from your recent injury orsurgery. Follow-up care is a tomas part of your treatment and safety. Be sure to make and go to all appointments, and call your doctor if you are having problems. If you do not already have a follow-up appointment made, call Dr. Cardoso office in the next 1-3 days to make follow up appointment for 1 weeks at [phone]. It is also a good idea to know your test results and keep a list of the medicines you take. Medications will be prescribed for you at your provider's discretion. These medications are to be used as instructed; if they are taken more often that prescribed they will not be refilled early and in most cases will not be refilled at all. > When a refill is needed,you should contact danny fabian 2-3 business days before your prescription runs out. Medications will NOT be refilled by fire loss prevention engineer providers after hours! > Many pain medications contain Tylenol (Acetaminophen). Do not consume more than 4,000 mg of Tylenol per day in total with any combination ofmedications. > Pain medications can cause constipation. Please use an over the counter stool softener as directed, while taking pain medications. Consulty our local pharmacist with questions or recommendations on stool softeners. If constipation persists, contact our office or your primary care provider. > While under our care,you are not to receive pain medications or other controlled substances from any other provider unless our office is notified and approves. Any attempts to do so will result in refusal to prescribe any further pain medications and possible dismissal from our practice. ? Your wound and/or dressing should remain clean and dry for 7 days after surgery. On postoperative day 7 we will change her dressing in clinic. Do not put any creams or ointments on theincision > It is normal for there to be a small amount of discharge (bloody or blood tinged) present from a surgical wound for the first 1-3days. > The wound should be examined twice a day for signs of infection. Mild redness or bruising is to be expected but indications that an infection maybe starting would include; An increase in redness, swelling, or discharge, a foul odor present around the incision, and/or a fever greater than 101 ?F ? Showering is permitted, however we ask that you do not take a bath, sit in a whirlpool / Jacuzzi, or go swimming for 1 month. For only the first 2 days after surgery, lt wilt be necessary for you to cover your wound/dressing with plastic and tape to keep it dry. ? Walking is essential for the healing process after surgery. We would like you to slowly advance your walking. This should be done on relatively flat clear ground (inside or out) or can be done on a treadmill. Remember this goal does not have to happen all at once, slowly increase your distance and duration. This can be broken into more more than one walk per day as tolerated. Patients who walk as directed after surgery rarely require Physical Therapy. In the unlikely event this issue arises your provider will direct hospital staff to make the appropriate arrangements. ? No lifting over 5 pounds {a gallon of milk) or bending/twisting until further notice. Each of these activities places an unnecessary amount of stress onto the body and can impede the delicate healing process. > Instead of bending at the waist, keep your back straight and bend at the knees. > Instead of twisting your torso, keep your back straight and turn your entire body with your feet. ? You may sleep in any position which makes you comfortable. Many patients find comfort sleeping in a reclining chair. It is not abnormal to have difficulty sleeping for the first several weeks following your surgery. We re commend trying Benadry! or Tylenol PM as directed to help with your sleeping difficulties. Both medications are over the counter and available withoutprescription. ? NO SMOKING!!! Smoking dramatically increases the probability of developing postoperative wound infections. ? Common complaints after lumbar and/or thoracic spine surgery include, but are not limited to: numbness and/or tingling in the legs, pain around the incision and surrounding tissues, muscle spasms, or stiffness of the middle to low back. Contact our office if these symptoms persist or if an acute change occurs. ? No driving for the first 3-5days, and not while taking narcotics [] until seen at your follow-up appointment and cleared. There are no restrictions for riding on short trips, however if you take a longer trip, arrangements should be made to make regular stops to get out of the vehicle and stretch . ? Swelling is an unfortunate event that will take place with any surgery and is the primary source of your postoperative discomfort. While walking and regular approved activities helps control inflammation, there are additional steps you can take to minimizeswelling. > Place ice over the surgical site and surrounding tissue for twenty minutes, followed by applying a low/medium heat (heating pad) for an additional twenty minutes every 1-2 hours as needed for painrelief. > You may use of over the counter anti-inflammatory medications (Ibuprofen, Motrin, Aleve, Advil, etc) as directed on the package label. These types of medicines wm significantly reduce the amount of discomfort you experience after surgery from swelling. It should be noted that if you have and allergy to any of these medications, or a history of ulcers or kidney disease you should consult you primary care provider prior to starting these medications. Discharge Attestations Time Spent in Discharge Care*: less than 30 min Quality Metrics Clinical Quality Measures [ No reported AMI, CVA or VTE this stay] Coding Level of Care Code Acute Code for Madeleine Peters
[2023-08-11] MEDS: hyDROXYzine 25 mg Capsule 50 MG PO (10:43)
[2023-08-11 11:19] VITALS: BP 115/70; PULSE 107; RESP 16; TEMP 36.7; O2SAT 96
[2023-08-11] MEDS: ketorolac 30 mg/mL INJ IVP (12:54)
[2023-08-11 13:52] VITALS: BP 115/70; PULSE 107; RESP 16; TEMP 36.7; O2SAT 96
== END 2023-08-11 13:50 | disposition home or self-care (01) | DRG 455 ==
LOC: MEDSURG 08-11 00:45
PROVIDERS: Anesthesiology; Admitting Provider Orthopaedic Surgery; PCP Nurse Practitioner; Visit Provider Orthopaedic Surgery
PROC: 0SG30AJ Fusion of Lumbosacral Joint with Interbody Fusion Device, Posterior Approach, Anterior Column, Open Approach (ICD-10-PCS; principal; 2023-08-10 07:00)
PROC: 0SG30AJ Fusion of Lumbosacral Joint with Interbody Fusion Device, Posterior Approach, Anterior Column, Open Approach (ICD-10-PCS; CPT 22612; 2023-08-10 07:00)
DX: M51.06 Intervertebral disc disorders with myelopathy, lumbar region (principal); M51.16 Intervertebral disc disorders with radiculopathy, lumbar region; F17.210 Nicotine dependence, cigarettes, uncomplicated
CPT/HCPCS: 51702; 72100; 76000; 81025; 86850; 86900; 97110; 97116; 97161; 97530; C1713; J0690; J1100; J1170; J1200; J1644; J1885; J2250; J2405; J2704; J2710; J3010; J3370; J3490; J7030; J7120

== ENCOUNTER → 2023-08-23 08:43 | Outpatient (BNVA) | payer MEDICAID, SELFPAY | PROVIDERS: PCP Nurse Practitioner; Visit Provider Orthopaedic Surgery | DX: N39.0 Urinary tract infection, site not specified (principal); Z98.1 Arthrodesis status | CPT/HCPCS: 81003; 99024 ==

== ENCOUNTER → 2023-09-22 07:46 | Outpatient (BNVA) | payer MEDICAID, SELFPAY | PROVIDERS: PCP Nurse Practitioner; Visit Provider Orthopaedic Surgery | DX: Z98.1 Arthrodesis status (principal) | CPT/HCPCS: 72100; 99024 ==

== ENCOUNTER → 2023-11-10 08:49 | Outpatient (BNVA) | payer MEDICAID, SELFPAY | PROVIDERS: PCP Nurse Practitioner; Visit Provider Orthopaedic Surgery | DX: Z98.1 Arthrodesis status (principal) | CPT/HCPCS: 72100; 99024 ==

== ENCOUNTER 2023-12-04 06:30 | Outpatient (RCR) | payer MEDICAID, SELFPAY | END 2024-01-02 23:59 | disposition home or self-care (01) | LOC: GPT 06:30 | PROVIDERS: Visit Provider Orthopaedic Surgery | DX: M54.9 Dorsalgia, unspecified (principal); G89.29 Other chronic pain | CPT/HCPCS: 97110; 97161; 97530 ==

== ENCOUNTER 2024-01-03 06:00 | Outpatient (RCR) | payer MEDICAID, SELFPAY | END 2024-02-02 23:59 | disposition home or self-care (01) | LOC: GPT 06:00 | PROVIDERS: Visit Provider Orthopaedic Surgery | DX: M54.9 Dorsalgia, unspecified (principal); G89.29 Other chronic pain | CPT/HCPCS: 97110; 97530 ==

== ENCOUNTER → 2024-02-09 10:13 | Outpatient (BNVA) | payer MEDICAID, SELFPAY | PROVIDERS: Visit Provider Orthopaedic Surgery | DX: Z98.1 Arthrodesis status (principal) | CPT/HCPCS: 72100; 99213 ==

== ENCOUNTER → 2024-08-09 10:09 | Outpatient (BNVA) | payer MEDICAID, SELFPAY | PROVIDERS: PCP Nurse Practitioner; Visit Provider Orthopaedic Surgery | DX: Z98.1 Arthrodesis status (principal) | CPT/HCPCS: 72100; 99213 ==

== ENCOUNTER 2024-09-02 05:00 | Outpatient (RCR) | payer MEDICAID, SELFPAY | END 2024-10-01 23:55 | disposition home or self-care (01) | LOC: GPT 05:00 | PROVIDERS: Visit Provider Orthopaedic Surgery | DX: M54.9 Dorsalgia, unspecified (principal); G89.29 Other chronic pain | CPT/HCPCS: 97110; 97161 ==

== ENCOUNTER 2024-10-02 05:00 | Outpatient (RCR) | payer MEDICAID, SELFPAY | END 2024-11-01 23:59 | disposition home or self-care (01) | LOC: GPT 05:00 | PROVIDERS: Visit Provider Orthopaedic Surgery | DX: M54.9 Dorsalgia, unspecified (principal); G89.29 Other chronic pain | CPT/HCPCS: 97110 ==

== ENCOUNTER 2024-11-02 05:00 | Outpatient (RCR) | payer MEDICAID, SELFPAY | END 2024-12-02 23:59 | disposition home or self-care (01) | LOC: GPT 05:00 | PROVIDERS: PCP Nurse Practitioner; Visit Provider Orthopaedic Surgery | DX: M54.9 Dorsalgia, unspecified (principal); G89.29 Other chronic pain | CPT/HCPCS: 97110; 97530 ==

== ENCOUNTER → 2024-11-08 10:20 | Outpatient (BNVA) | payer MEDICAID, SELFPAY | PROVIDERS: PCP Nurse Practitioner; Visit Provider Orthopaedic Surgery | DX: Z98.1 Arthrodesis status (principal); M51.16 Intervertebral disc disorders with radiculopathy, lumbar region; M79.605 Pain in left leg | CPT/HCPCS: 99213 ==

== ENCOUNTER → 2024-11-30 10:46 | Outpatient (BNVA) | payer MEDICAID, SELFPAY | PROVIDERS: PCP Nurse Practitioner; Visit Provider Nurse Practitioner Family | DX: M25.562 Pain in left knee (principal); M25.571 Pain in right ankle and joints of right foot | CPT/HCPCS: 73562; 73610 ==

== ENCOUNTER 2024-12-03 05:00 | Outpatient (RCR) | payer MEDICAID, SELFPAY | END 2025-01-01 23:59 | disposition home or self-care (01) | LOC: GPT 05:00 | PROVIDERS: PCP Nurse Practitioner; Visit Provider Orthopaedic Surgery | DX: M54.9 Dorsalgia, unspecified (principal); G89.29 Other chronic pain | CPT/HCPCS: 97110; 97530 ==

== ENCOUNTER 2025-01-30 11:52 | Outpatient (RCR) | payer MEDICAID, SELFPAY | END 2025-02-01 23:59 | disposition home or self-care (01) | LOC: GPT 11:52 | PROVIDERS: PCP Nurse Practitioner; Visit Provider Orthopaedic Surgery | DX: M54.9 Dorsalgia, unspecified (principal); G89.29 Other chronic pain | CPT/HCPCS: 97110; 97164; 97530 ==

== ENCOUNTER 2025-02-19 12:50 | Outpatient (CLI) | payer MEDICAID, SELFPAY ==
--- NOTE | 2025-02-19 13:00 | MR_ITS ---
WS: [id number] MRI LUMBAR SPINE NONCONTRAST HISTORY: lumbar pain radiating to legs, recent lumbar spine surgery 08/10/2023 and 08/09/2024 COMPARISON: 05/25/2023 TECHNIQUE: Sagittal and axial multisequence imaging is submitted. Posterior lumbar fusion with interbody spacer at L5-S1. Normal lumbar alignment with no compression fractures or marrow edema. Discs are well-preserved with the exception of the L5-S1 disc. Conus terminates normally at L1-2 disc level. L1-L2: Normal. L2-L3: Normal. L3-L4: Normal. L4-L5: Mild disc bulging with ligamentum flavum and facet arthritis. No significant stenosis. L5-S1: Patulous thecal sac. Slight clumping of the nerve roots in the peripheral thecal sac. Large posterior laminectomy defect. There is mild encroachment upon the thecal sac at the mid L5 level by facet arthritis. Mild osteophytic ridging of the L5 vertebral body. Mild bilateral foraminal stenosis. Central disc protrusion no longer identified. Mild foraminal stenosis due to disc and osteophyte disease. Paravertebral soft tissues are normal. MR/MR lumbar spine wo con* [id number] IMPRESSION: 1. Posterior L5-S1 lumbar fusion with interbody fusion is new since 05/25/2023. 2. No central stenosis or central disc protrusion identified at L5-S1. 3. Mild bilateral foraminal stenosis at L5-S1 due to disc and osteophyte disea se. 4. No high-grade central or foraminal stenosis throughout the remaining lumbar spine.
== END 2025-02-19 12:51 | disposition home or self-care (01) ==
LOC: RAD 12:51
PROVIDERS: PCP Nurse Practitioner; Visit Provider Orthopaedic Surgery
DX: Z98.1 Arthrodesis status (principal); M51.16 Intervertebral disc disorders with radiculopathy, lumbar region; M79.606 Pain in leg, unspecified; M48.07 Spinal stenosis, lumbosacral region; M25.78 Osteophyte, vertebrae; Z98.890 Other specified postprocedural states; M51.369 Other intervertebral disc degeneration, lumbar region without mention of lumbar back pain or lower extremity pain; M24.28 Disorder of ligament, vertebrae; M47.896 Other spondylosis, lumbar region; R93.7 Abnormal findings on diagnostic imaging of other parts of musculoskeletal system; M96.89 Other intraoperative and postprocedural complications and disorders of the musculoskeletal system; M51.379 Other intervertebral disc degeneration, lumbosacral region without mention of lumbar back pain or lower extremity pain
CPT/HCPCS: 72148

== ENCOUNTER 2025-02-20 08:58 | Outpatient (RCR) | payer MEDICAID, SELFPAY | END 2025-03-03 23:59 | disposition home or self-care (01) | LOC: GPT 08:58 | PROVIDERS: PCP Nurse Practitioner; Visit Provider Orthopaedic Surgery | DX: M54.9 Dorsalgia, unspecified (principal); G89.29 Other chronic pain | CPT/HCPCS: 97110; 97530 ==

== ENCOUNTER 2025-03-06 08:49 | Outpatient (RCR) | payer MEDICAID, SELFPAY | END 2025-04-03 23:59 | disposition home or self-care (01) | LOC: GPT 08:49 | PROVIDERS: PCP Nurse Practitioner; Visit Provider Orthopaedic Surgery | DX: M54.9 Dorsalgia, unspecified (principal); G89.29 Other chronic pain | CPT/HCPCS: 97110 ==